=== PATIENT | male | born 1960 | race Caucasian/White ===

== ENCOUNTER 2016-05-12 16:48 | Emergency (ER) | payer MEDICARE, OTHER ==
[2016-05-12] MEDS ORDERED: Albuterol/Ipratropium 3.0-0.5 MG/3 ML Neb Soln NEB ONE (16:58)
[2016-05-12] MEDS ORDERED: methylPREDNISolone Sodium Succinate 125 MG/2 ML SDV IVPUSH ONE (17:01)
--- NOTE | 2016-05-12 17:26 | EDM.PDOC ---
ED HISTORY OF PRESENT ILLNESS - General Stated Complaint: SOB ACHES Time Seen by Provider: 05/12/16 16:48 Source: Reports: Patient, Family History Limitations: Reports: Respiratory distress - History of Present Illness INITIAL COMMENTS - FREE TEXT/NARRATIVE: 56 years old w m with a h/o COPD, CAD, 11 MIs in the past, with metabolic syndrome, came to the ed due to acute worsening of SOB and SSCP, nonradiating. Pt can talk 3 word sentences, walk only short distances due to SOB, Pt took ASA 325 mg [employer]. No N/V/D or dizziness. ECG showed NSR no acute changes.BP 139/79 puls 64 Symptom Onset Date: 05/12/16 Symptom Onset Time: 13:00 Timing/Duration: Reports: Hour(s):, Gradual onset Severity: moderate Location, General: Reports: chest Improves with: Reports: Medication Worsens with: Reports: Movement Context, General: Reports: Activity Associated Symptoms: Reports: chest pain, shortness of breath, weakness - Related Data Allergies/ADRs: Allergies Allergy/AdvReac Type Severity Reaction Status Date / Time No Known Allergies Allergy Verified 05/12/16 17:49 Home Meds: Home Meds Albuterol [IJD: Albuterol HFA] 2 puff .XX Q4H PRN 05/12/16 [History] Amiodarone [Cordarone] 200 mg PO DAILY 05/12/16 [History] Budesonide/Formoterol Fumarate [Symbicort 80-4.5 Mcg Inhaler] 2 puff IH BID [History] Carbidopa/Levodopa [Carbidopa-Levodopa 25-100] 2 tab BEDTIME 05/12/16 [History] Carvedilol [Coreg] 50 mg PO BID 05/12/16 [History] Clopidogrel [Plavix] 75 mg PO DAILY 05/12/16 [History] Furosemide [Lasix] 40 mg PO DAILY 05/12/16 [History] Furosemide [Lasix] 40 mg PO DAILY PRN 05/12/16 [History] Insulin NPH Hum/Reg Insulin Hm [Novolin 70-30 100 Unit/ml Vial] 10 unit SQ DAILY 05/12/16 [History] Insulin NPH Hum/Reg Insulin Hm [Novolin 70-30 100 Unit/ml Vial] 13 units ACDINNER 05/12/16 [History] Potassium Chloride 20 meq PO DAILY 05/12/16 [History] Sildenafil Citrate [Sildenafil] 100 mg PO DAILY PRN 05/12/16 [History] Simvastatin [Zocor] 40 mg PO BEDTIME 05/12/16 [History] Tiotropium [Spiriva HandiHaler] 2 inhalation .XX DAILY 05/12/16 [History] buPROPion HCl [Wellbutrin SR] 150 mg PO BID 05/12/16 [History] glipiZIDE [Glucotrol XL] 10 mg PO BID 05/12/16 [History] metFORMIN HCl [Metformin HCl] 1,000 mg PO BID 05/12/16 [History] traZODone 100 mg PO BEDTIME 05/12/16 [History] ED ROS GENERAL - Review of Systems Review Of Systems: See Below Constitutional: Reports: weakness, weight gain HEENT: Reports: No symptoms Respiratory: Reports: Shortness of Breath Cardiovascular: Reports: Chest pain, Dyspnea on exertion Endocrine: Reports: no symptoms GI/Abdominal: Reports: No symptoms : Reports: no symptoms Musculoskeletal: Reports: no symptoms Skin: Reports: no symptoms Neurological: Reports: No Symptoms Hematologic/Lymphatic: Reports: no symptoms Immunologic: Reports: no symptoms ED EXAM, GENERAL - Physical Exam Exam: See Below Exam Limited By: Respiratory distress General Appearance: alert, WD/WN, moderate distress Eye Exam: bilateral eye: normal inspection Ears: normal external exam, normal canal Ear Exam: bilateral ear: auricle normal Nose: normal inspection, normal mucosa, no blood Throat/Mouth: Normal inspection, Normal lips Head: atraumatic, normocephalic Neck: normal inspection, supple, non-tender, full range of motion Respiratory/Chest: respiratory distress, decreased breath sounds, wheezing, prolonged expiration Cardiovascular: normal peripheral pulses, regular rate, rhythm, no edema, JVD GI/Abdominal: normal bowel sounds, soft, non tender, no organomegaly (Male) Exam: No hernia, Normal inspection Rectal (Males) Exam: Deferred Back Exam: normal inspection, full range of motion Extremities: normal inspection, normal range of motion, non-tender Neurological: alert, oriented, CN II-XII intact, normal cognition Psychiatric: normal affect, normal mood Skin Exam: Warm, Dry, Intact, Normal color, No rash Lymphatic: no adenopathy EKG INTERPRETATION EKG Date: 05/12/16 Time: 17:15 Rhythm: NSR Rate (beats/min): 64 [place]: normal P-wave: present QRS: normal ST-T: normal QT: normal Comparison: NA - no prior EKG Course - Vital Signs Text/Narrative:: 56 years old w m with a h/o COPD, CAD, 11 MIs in the past, with metabolic syndrome, came to the ed due to acute worsening of SOB and SSCP, nonradiating. Pt can talk 3 word sentences, walk only short distances due to SOB, Pt took ASA 325 mg [employer]. No N/V/D or dizziness. ECG showed NSR no acute changes.BP 139/79 puls 64 Pule ox was 92 % on RA PE: Exp wheezes, poor airmovement Labs: BNP 998, Trop 0.57 D Dimer 557 CXR: CHF, CTA results are pending Impression: H/O CAD, Elevated D Dimer, Eleveted Troponin (NSTEMI), COPD exacerbation Tx: Lasix, Duoneb, Solumdrol, (ASA given [employer]) O2 by nc Reexam: Improved, SSCP subsided. Consultation: Dr. David: Transfere to [place] Consultation: , Hospitalist, [facility]: Accepted the pt for further care Plan: Transfere to [facility] Last Recorded V/S: Last Vital Signs Temp 36.9 C 05/12/16 16:50 Pulse 65 05/12/16 16:50 Resp 20 05/12/16 16:50 BP 138/79 05/12/16 16:50 Pulse Ox 97 05/12/16 16:50 - Orders/Labs/Meds Orders: Active Orders 24 hr Category Date Time Status EKG Documentation Completion [RC] ASDIRECTED Care 05/12/16 16:57 Active RT Aerosol Therapy [RC] ASDIRECTED Care 05/12/16 16:58 Active Ang Chest [CT] Stat Exams 05/12/16 18:04 Ordered Chest 1V Frontal [CR] Stat Exams 05/12/16 16:56 Taken EKG 12 Lead [EK] Routine Ther 05/12/16 16:56 Ordered Labs: Laboratory Tests 05/12/16 05/12/16 05/12/16 Range/Units 17:05 17:05 17:05 WBC 5.2 (4.5-12.0) X10-3/uL RBC 4.02 L (4.30-5.75) x10(6)uL Hgb 11.1 L (11.5-15.5) g/dL Hct 34.3 (30.0-51.3) % MCV 85.3 (80-96) fL MCH 27.6 L (27.7-33.6) pg MCHC 32.3 (32.2-35.4) g/dL RDW 18.1 H (11.5-15.5) % Plt Count 180 (125-369) X10(3)uL MPV 8.0 (7.4-10.4) fL Add Manual Diff Yes Neutrophils % (Manual) 85 H (46-82) % Band Neutrophils % 3 (0-6) % Lymphocytes % (Manual) 8 L (13-37) % Monocytes % (Manual) 3 L (4-12) % Eosinophils % (Manual) 1 (0-5) % Anisocytosis Few PT 11.1 (8.7-11.1) INR 1.10 (0.89-1.13) D-Dimer, Quantitative (100-400) ng/mL Sodium 135 (135-145) mmol/L Potassium 4.3 (3.5-5.3) mmol/L Chloride 101 (100-110) mmol/L Carbon Dioxide 24 (23-29) mmol/L BUN 26 H (5-20) mg/dL Creatinine 1.3 (0.6-1.3) mg/dL Est Cr Clr Drug Dosing TNP Estimated GFR (MDRD) 57 L (>60) BUN/Creatinine Ratio 20.0 (9-20) Glucose 156 H (80-116) mg/dL Calcium 8.7 (8.6-10.2) mg/dL Troponin I (0.02-0.06) NG/ML B-Natriuretic Peptide (0-100) pg/mL Urine Color (YELLOW) Urine Appearance (CLEAR) Urine pH (5.0-6.5) Ur Specific [place] (1.010-1.025) Urine Protein (NEGATIVE) mg/dL Urine Glucose (UA) (NEGATIVE) mg/dL Urine Ketones (NEGATIVE) mg/dL Urine Occult Blood (NEGATIVE) Urine Nitrite (NEGATIVE) Urine Bilirubin (NEGATIVE) Urine Urobilinogen (NEGATIVE) mg/dL Ur Leukocyte Esterase (NEGATIVE) Urine RBC (0) Urine WBC (0) Ur Squamous Epith Cells (NS,R,O) Urine Bacteria (NS) 05/12/16 05/12/16 05/12/16 Range/Units 17:05 17:05 17:05 WBC (4.5-12.0) X10-3/uL RBC (4.30-5.75) x10(6)uL Hgb (11.5-15.5) g/dL Hct (30.0-51.3) % MCV (80-96) fL MCH (27.7-33.6) pg MCHC (32.2-35.4) g/dL RDW (11.5-15.5) % Plt Count (125-369) X10(3)uL MPV (7.4-10.4) fL Add Manual Diff Neutrophils % (Manual) (46-82) % Band Neutrophils % (0-6) % Lymphocytes % (Manual) (13-37) % Monocytes % (Manual) (4-12) % Eosinophils % (Manual) (0-5) % Anisocytosis PT (8.7-11.1) INR (0.89-1.13) D-Dimer, Quantitative 557 H (100-400) ng/mL Sodium (135-145) mmol/L Potassium (3.5-5.3) mmol/L Chloride (100-110) mmol/L Carbon Dioxide (23-29) mmol/L BUN (5-20) mg/dL Creatinine (0.6-1.3) mg/dL Est Cr Clr Drug Dosing Estimated GFR (MDRD) (>60) BUN/Creatinine Ratio (9-20) Glucose (80-116) mg/dL Calcium (8.6-10.2) mg/dL Troponin I 0.53 H* (0.02-0.06) NG/ML B-Natriuretic Peptide 996 H (0-100) pg/mL Urine Color (YELLOW) Urine Appearance (CLEAR) Urine pH (5.0-6.5) Ur Specific [place] (1.010-1.025) Urine Protein (NEGATIVE) mg/dL Urine Glucose (UA) (NEGATIVE) mg/dL Urine Ketones (NEGATIVE) mg/dL Urine Occult Blood (NEGATIVE) Urine Nitrite (NEGATIVE) Urine Bilirubin (NEGATIVE) Urine Urobilinogen (NEGATIVE) mg/dL Ur Leukocyte Esterase (NEGATIVE) Urine RBC (0) Urine WBC (0) Ur Squamous Epith Cells (NS,R,O) Urine Bacteria (NS) 05/12/16 Range/Units 18:00 WBC (4.5-12.0) X10-3/uL RBC (4.30-5.75) x10(6)uL Hgb (11.5-15.5) g/dL Hct (30.0-51.3) % MCV (80-96) fL MCH (27.7-33.6) pg MCHC (32.2-35.4) g/dL RDW (11.5-15.5) % Plt Count (125-369) X10(3)uL MPV (7.4-10.4) fL Add Manual Diff Neutrophils % (Manual) (46-82) % Band Neutrophils % (0-6) % Lymphocytes % (Manual) (13-37) % Monocytes % (Manual) (4-12) % Eosinophils % (Manual) (0-5) % Anisocytosis PT (8.7-11.1) INR (0.89-1.13) D-Dimer, Quantitative (100-400) ng/mL Sodium (135-145) mmol/L Potassium (3.5-5.3) mmol/L Chloride (100-110) mmol/L Carbon Dioxide (23-29) mmol/L BUN (5-20) mg/dL Creatinine (0.6-1.3) mg/dL Est Cr Clr Drug Dosing Estimated GFR (MDRD) (>60) BUN/Creatinine Ratio (9-20) Glucose (80-116) mg/dL Calcium (8.6-10.2) mg/dL Troponin I (0.02-0.06) NG/ML B-Natriuretic Peptide (0-100) pg/mL Urine Color Yellow (YELLOW) Urine Appearance Clear (CLEAR) Urine pH 5.0 (5.0-6.5) Ur Specific [place] 1.010 (1.010-1.025) Urine Protein Negative (NEGATIVE) mg/dL Urine Glucose (UA) Normal (NEGATIVE) mg/dL Urine Ketones Negative (NEGATIVE) mg/dL Urine Occult Blood Negative (NEGATIVE) Urine Nitrite Negative (NEGATIVE) Urine Bilirubin Negative (NEGATIVE) Urine Urobilinogen Normal (NEGATIVE) mg/dL Ur Leukocyte Esterase Negative (NEGATIVE) Urine RBC 0-5 (0) Urine WBC 0-5 (0) Ur Squamous Epith Cells Rare (NS,R,O) Urine Bacteria Few H (NS) Meds: Medications Discontinued Medications Generic Name Dose Route Start Last Admin Trade Name Scott PRN Reason Stop Dose Admin Albuterol/Ipratropium 3 ml 05/12/16 16:58 05/12/16 18:00 Duoneb 3.0-0.5 Mg/3 Ml NEB 05/12/16 16:59 3 ml ONETIME ONE Administration Furosemide 20 mg 05/12/16 18:50 05/12/16 18:54 Lasix IVPUSH 05/12/16 18:51 20 mg NOW ONE Administration Furosemide Confirm 05/12/16 18:50 05/12/16 18:54 Lasix Administered 05/12/16 18:51 Not Given Dose 40 mg .ROUTE .STK-MED ONE Iopamidol 75 ml 05/12/16 18:23 05/12/16 18:38 Isovue-370 (76%) IV 05/12/16 18:24 75 ml ONETIME ONE Administration Methylprednisolone Sodium Succinate 125 mg 05/12/16 17:01 05/12/16 18:10 Solu-Medrol IVPUSH 05/12/16 17:02 125 mg ONETIME ONE Administration Departure - Departure Time of Disposition: 19:01 Disposition: DC/Tfer to [facility] Condition: fair Clinical Impression: NSTEMI (non-ST elevated myocardial infarction), COPD with exacerbation, Elevated d-dimer Referrals: PCP,Not In Area [Primary Care Provider] - - My Orders Last 24 Hours: My Active Orders 05/12/16 16:56 Chest 1V Frontal [CR] Stat EKG 12 Lead [EK] Routine 05/12/16 16:57 EKG Documentation Completion [RC] ASDIRECTED 05/12/16 16:58 RT Aerosol Therapy [RC] ASDIRECTED 05/12/16 18:04 Ang Chest [CT] Stat - Assessment/Plan Last 24 Hours: My Active Orders 05/12/16 16:56 Chest 1V Frontal [CR] Stat EKG 12 Lead [EK] Routine 05/12/16 16:57 EKG Documentation Completion [RC] ASDIRECTED 05/12/16 16:58 RT Aerosol Therapy [RC] ASDIRECTED 05/12/16 18:04 Ang Chest [CT] Stat
[2016-05-12] MEDS ORDERED: Iopamidol 755 Mg/ML 75 ML Bottle IV ONE (18:23)
[2016-05-12 18:28] VITALS: BP 138/79
[2016-05-12] MEDS ORDERED: Furosemide 40 MG/4 ML VIAL IVPUSH ONE (18:50)
[2016-05-12] MEDS ORDERED: Furosemide 40 MG/4 ML VIAL ONE (18:50)
[2016-05-12] MEDS ORDERED: Morphine 2 MG/ML Syringe IVPUSH ONE ×2 (19:00→19:10)
[2016-05-12] MEDS ORDERED: Morphine 2 MG/ML Syringe ONE (19:11)
--- NOTE | 2016-05-13 11:08 | CR ---
INDICATION: Shortness of breath. CHEST: A single AP upright portable view of the chest, 05/10/2016. No comparisons. The heart is enlarged with bipolar pacemaker leads. Overlying EKG leads are noted. Evidence of previous median sternotomy is noted. The aorta is slightly tortuous with calcification in the arch. Lungs are hyperaerated. Areas of patchy infiltration are suggested but not well seen with some nodularity suggested. Findings may be on the basis of granulomatous disease or even metastasis and should be correlated clinically. Pleural parenchymal changes at the right lung base may be fibrotic in nature. IMPRESSION: 1. ASHD with cardiomegaly and possible minimal or early CHF. Interstitial lung edema cannot be excluded. 2. COPD. 3. Nodularity in the lungs, raising question of granulomatous disease, abscesses, or possibly even metastatic disease - neoplastic. Correlate clinically. 4. Pleural parenchymal scarring suggested at the right costophrenic angle - lung base. MTDD
== END 2016-05-12 19:25 | disposition critical access hospital (66) ==
LOC: FB.ED 16:48
DX: I21.4 Non-ST elevation (NSTEMI) myocardial infarction (principal); J44.1 Chronic obstructive pulmonary disease with (acute) exacerbation; Z79.4 Long term (current) use of insulin; Z79.899 Other long term (current) drug therapy
CPT/HCPCS: 36415; 71010; 71275; 80048; 81001; 83880; 84484; 85025; 85379; 85610; 93005; 94640; 96374; 96375; 99285; J1940; J2270; J2930; J7620; Q9967